=== PATIENT | female | born 1965 | race Caucasian/White ===

== ENCOUNTER 2020-12-13 15:02 | Emergency (ER) | payer OTHER ==
[2020-12-13 16:50] LABS: EOSINOPHIL 5.1 % (0-5); HCT 48.7 % (37.0-47.0); HGB 16.4 g/dl (12.5-16.0); LYMPHOCYTE 22.9 % (15-48); MCH 32.2 pg (25.0-31.0); MCHC 33.7 g/dL (32.0-36.0); MCV 95.7 fL (78.0-100.0); MONOCYTE 7.5 % (0-12); MPV 9.5 fL (6.0-9.5); NEUTROPHIL 63.1 % (41-80); NRBC 0; PLT 306 K/uL (150-400); RBC 5.09 M/uL (4.20-5.40); RDW 13.5 % (11.5-14.0); WBC 7.9 K/uL (4.0-10.5)
[2020-12-13 17:00] LABS: BUN/CREAT RATIO (CALC) 18.9 RATIO; CREATININE 0.74 mg/dL (0.51-0.95)
[2020-12-13 17:54] LABS: CORONAVIRUS 2019 SARS-COV-2 NEGATIVE (NEGATIVE); INFLUENZA A NAA NEGATIVE (NEGATIVE)
== END 2020-12-13 18:56 | disposition home or self-care (01) ==
LOC: FER 15:02
PROVIDERS: Nurse Practitioner Family
DX: J06.9 Acute upper respiratory infection, unspecified (principal); I10 Essential (primary) hypertension; J44.9 Chronic obstructive pulmonary disease, unspecified; Z20.822 Contact with and (suspected) exposure to COVID-19
CPT/HCPCS: 36415; 71045; 80048; 84484; 85025; 85379; 93005; J0696; J1100; U0002

== ENCOUNTER 2020-12-30 07:45 | Emergency (ER) | payer OTHER ==
[2020-12-30 09:32] LABS: BASOPHIL 0.5 % (0-2); EOSINOPHIL 7.1 % (0-5); HCT 46.7 % (37.0-47.0); LYMPHOCYTE 16.5 % (15-48); MCH 32.2 pg (25.0-31.0); MCHC 34.3 g/dL (32.0-36.0); MONOCYTE 6.4 % (0-12); MPV 9.2 fL (6.0-9.5); NEUTROPHIL 69.3 % (41-80); NRBC 0; PLT 286 K/uL (150-400); RBC 4.97 M/uL (4.20-5.40); RDW 13.3 % (11.5-14.0); WBC 8.2 K/uL (4.0-10.5)
[2020-12-30 09:42] LABS: INR 1.03 (0.9-1.2); PROTHROMBIN TIME 12.8 SECONDS (11.4-13.6); PTT 25.9 SECONDS (22.2-34.7)
[2020-12-30 09:43] LABS: D-DIMER < 0.27 ug/mLFEU (0.00-0.41)
[2020-12-30 10:02] LABS: PRO-BNP 49 pg/mL (<125)
[2020-12-30 10:04] LABS: ALBUMIN 3.9 g/dL (3.4-5.0); BILIRUBIN - TOTAL 0.4 mg/dL (0.2-1.0); BUN/CREAT RATIO (CALC) 20.3 RATIO; CREATININE 0.74 mg/dL (0.51-0.95); GLOBULIN (CALCULATION) 3.1 g/dL; MAGNESIUM 1.9 mg/dL (1.8-2.4); POTASSIUM 4.4 mmol/L (3.5-5.1)
[2020-12-30 10:53] LABS: BILIRUBIN NEGATIVE (NEGATIVE); BLOOD 1+ Ery/uL (NEGATIVE); CLARITY CLEAR (CLEAR); COLOR YELLOW (YELLOW); GLUCOSE (U) NORMAL (NORMAL); LEUKOCYTES NEGATIVE Leu/uL (NEGATIVE); NITRITE NEGATIVE (NEGATIVE); PROTEIN NEGATIVE (NEGATIVE); UROBILINOGEN 0.2 mg/dL (0.2-1.0)
[2020-12-30 11:02] LABS: BACTERIA 1+
[2020-12-30] MEDS ORDERED: ROBAXIN750 MG PO (11:57)
[2020-12-30] MEDS ORDERED: NORCO 5-325 TA1 EACH PO (11:57)
== END 2020-12-30 12:20 | disposition home or self-care (01) ==
LOC: FER 07:45
PROVIDERS: Emergency Medicine
DX: S29.011A Strain of muscle and tendon of front wall of thorax, initial encounter (principal); R06.02 Shortness of breath; J44.9 Chronic obstructive pulmonary disease, unspecified; F17.200 Nicotine dependence, unspecified, uncomplicated; X58.XXXA Exposure to other specified factors, initial encounter
CPT/HCPCS: 36415; 71250; 80053; 81001; 82550; 83735; 83880; 84145; 84484; 85025; 85379; 85610; 85730; J1170; J2405

== ENCOUNTER 2021-09-02 15:43 | Day surgery (SDCO) | payer OTHER ==
[~2021-09-02] VITALS: Ht 170 cm; Wt 88.0 kg
[~2021-09-02 15:43] MED LIST: NORCO 5-325 TA1 EACH PO; ROBAXIN750 MG PO
[2021-09-02 21:09] LABS: EOSINOPHIL 4.3 % (0-5); HCT 50.6 % (37.0-47.0); HGB 16.6 g/dl (12.5-16.0); LYMPHOCYTE 23.8 % (15-48); MCH 30.2 pg (25.0-31.0); MCHC 32.8 g/dL (32.0-36.0); MCV 92.2 fL (78.0-100.0); MONOCYTE 6.8 % (0-12); MPV 8.8 fL (6.0-9.5); NEUTROPHIL 63.9 % (41-80); NRBC 0; PLT 360 K/uL (150-400); RBC 5.49 M/uL (4.20-5.40); RDW 13.2 % (11.5-14.0); WBC 9.2 K/uL (4.0-10.5)
[2021-09-02 21:27] LABS: ALBUMIN 4.2 g/dL (3.4-5.0); BILIRUBIN - TOTAL 0.4 mg/dL (0.2-1.0); CREATININE 0.79 mg/dL (0.51-0.95); GLOBULIN (CALCULATION) 3.2 g/dL; POTASSIUM 4.2 mmol/L (3.5-5.1); TOTAL PROTEIN 7.4 g/dL (6.4-8.2)
[2021-09-02 21:45] LABS: CORONAVIRUS 2019 SARS-COV-2 NEGATIVE (NEGATIVE); INFLUENZA A NAA NEGATIVE (NEGATIVE)
[2021-09-03] MEDS ORDERED: VENTOLIN HFA IN18 GM INH (06:10)
[2021-09-03] MEDS ORDERED: NORVASC5 MG PO (06:10)
[2021-09-03] MEDS ORDERED: BUSPIRONE HCL15 MG PO (06:11)
[2021-09-03] MEDS ORDERED: LEXAPRO20 MG PO (06:12)
[2021-09-03] MEDS ORDERED: COLESTID1 GM PO (06:12)
[2021-09-03] MEDS ORDERED: ZETIA10 MG PO (06:13)
[2021-09-03] MEDS ORDERED: LOSARTAN-HCTZ1 EAC1 PO (06:14)
[2021-09-03] MEDS ORDERED: SYNTHROID50 MCG PO (06:14)
[2021-09-03] MEDS ORDERED: TOPROL XL 50 MG50 MG PO (06:15)
[2021-09-03] MEDS ORDERED: TRAZODONE 100M100 MG PO ×2 (06:16)
[2021-09-03] MEDS ORDERED: PROTONIX 40MG T40 MG PO (06:16)
[2021-09-03] MEDS ORDERED: ANORO ELLIPTA1 EACH INH (06:19)
[2021-09-03 07:26] LABS: HCT 45.3 % (37.0-47.0); MCH 30.2 pg (25.0-31.0); MCHC 33.1 g/dL (32.0-36.0); MCV 91.1 fL (78.0-100.0); MPV 8.9 fL (6.0-9.5); RBC 4.97 M/uL (4.20-5.40); RDW 13.4 % (11.5-14.0)
[2021-09-03 07:55] LABS: BUN/CREAT RATIO (CALC) 21.5 RATIO; CREATININE 0.65 mg/dL (0.51-0.95); MAGNESIUM 2.1 mg/dL (1.8-2.4); PHOSPHORUS 3.4 mg/dL (2.6-4.7); POTASSIUM 4.6 mmol/L (3.5-5.1)
[2021-09-03 07:57] LABS: CKMB 2.4 ng/mL (0.0-3.6); PRO-BNP 60 pg/mL (<125)
[2021-09-04 05:59] LABS: BASOPHIL 0.1 % (0-2); EOSINOPHIL 0 % (0-5); HCT 46.2 % (37.0-47.0); HGB 15.3 g/dl (12.5-16.0); LYMPHOCYTE 6.1 % (15-48); MCH 30.3 pg (25.0-31.0); MCHC 33.1 g/dL (32.0-36.0); MCV 91.5 fL (78.0-100.0); NRBC 0; PLT 359 K/uL (150-400); RBC 5.05 M/uL (4.20-5.40); RDW 13.4 % (11.5-14.0); WBC 14.6 K/uL (4.0-10.5)
[2021-09-04 06:00] LABS: NEUTROPHIL 91.3 % (41-80)
[2021-09-04 06:14] LABS: BUN/CREAT RATIO (CALC) 22.1 RATIO; CREATININE 0.68 mg/dL (0.51-0.95); POTASSIUM 4.3 mmol/L (3.5-5.1)
[2021-09-05 06:08] LABS: BASOPHIL 0.1 % (0-2); EOSINOPHIL 0.1 % (0-5); HCT 43.7 % (37.0-47.0); HGB 14.3 g/dl (12.5-16.0); MCH 30.4 pg (25.0-31.0); MCHC 32.7 g/dL (32.0-36.0); MCV 92.8 fL (78.0-100.0); MONOCYTE 7.7 % (0-12); MPV 9.1 fL (6.0-9.5); NEUTROPHIL 76.6 % (41-80); NRBC 0; PLT 327 K/uL (150-400); RBC 4.71 M/uL (4.20-5.40); RDW 13.6 % (11.5-14.0); WBC 14.2 K/uL (4.0-10.5)
[2021-09-05 06:29] LABS: BUN/CREAT RATIO (CALC) 28.9 RATIO; CREATININE 0.76 mg/dL (0.51-0.95); POTASSIUM 3.5 mmol/L (3.5-5.1)
[2021-09-05] MEDS ORDERED: DUONEB 2.5-0.5M1 AMP NEB (09:18)
[2021-09-05] MEDS ORDERED: ANORO ELLIPTA1 EACH INH (09:18)
[2021-09-05] MEDS ORDERED: AZITHROMYCIN250 MG PO (09:18)
[2021-09-05] MEDS ORDERED: PREDNISONE 20MG20 MG PO (09:18)
[2021-09-05] MEDS ORDERED: FLOVENT DISKU250 MCG INH (09:20)
[2021-09-05] MEDS ORDERED: NEBULIZER UNIT NEB (10:32)
== END 2021-09-05 11:27 | disposition home or self-care (01) ==
LOC: FER 15:43 → FMS 09-03 04:54
PROVIDERS: Allergy & Immunology Allergy; Emergency Medicine; Nurse Practitioner; ADMIT Internal Medicine
DX: J43.9 Emphysema, unspecified (principal); E03.9 Hypothyroidism, unspecified; I10 Essential (primary) hypertension; K21.9 Gastro-esophageal reflux disease without esophagitis; K58.9 Irritable bowel syndrome, unspecified; K22.70 Barrett's esophagus without dysplasia; Z98.1 Arthrodesis status; Z87.891 Personal history of nicotine dependence; R91.8 Other nonspecific abnormal finding of lung field; Z20.822 Contact with and (suspected) exposure to COVID-19; R94.31 Abnormal electrocardiogram [ECG] [EKG]; J96.91 Respiratory failure, unspecified with hypoxia
CPT/HCPCS: 36415; 71045; 71250; 80048; 80053; 82553; 83605; 83735; 83880; 84100; 84145; 84484; 85025; 93005; 94010; 94640; 94667; 94668; G0378; J0456; J0696; J1650; J2930; J3475; J7030; J7050; J7120; J7512; U0002